=== PATIENT | male | born 1970 | race African-American/Black ===

== ENCOUNTER 2018-09-26 10:25 | Emergency (ER) | payer OTHER ==
[~2018-09-26] VITALS: Ht 172.7 cm; Wt 70.3 kg
[2018-09-26 11:15] LABS: HEMATOCRIT 42.3 % (42.0-52.0); HEMOGLOBIN 14.7 gm/dL (14.0-18.0); MCH 33.3 pg (26.0-34.0); MCHC 34.7 g/dL (28.0-37.0); MCV 95.7 fL (80.0-100.0); RBC 4.42 mil/uL (4.50-6.00); RDW 13.8 % (10.5-14.5); WBC 7.7 thou/uL (4.0-11.0)
[2018-09-26 11:25] LABS: CALCIUM 9.7 mg/dL (8.5-10.1); CREATININE 1.1 mg/dL (0.7-1.3); POTASSIUM 3.6 mmol/L (3.5-5.1)
[2018-09-26] MEDS ORDERED: ANUSOL-HC25 MG RECTAL (12:39)
[2018-09-26 13:29] VITALS: BP 115/80
== END 2018-09-26 13:29 | disposition home or self-care (01) ==
LOC: ER 10:25
PROVIDERS: Emergency Medicine
DX: K64.9 Unspecified hemorrhoids (principal)